=== PATIENT | male | born 2005 | race Caucasian/White ===

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

== ENCOUNTER 2023-01-23 09:28 | Emergency (ER) | payer OTHER, SELFPAY ==
[2023-01-23 09:36] VITALS: BP 140/66; PULSE 105; RESP 20; TEMP 36.5; O2SAT 99
--- NOTE | 2023-01-23 09:38 | ED.URI ---
HPI - URI/Sore Throat General Chief Complaint: Upper Respiratory Infection Stated Complaint: cold flu Source: patient and RN notes reviewed History of Present Illness HPI Narrative: 17 yo M presents to urgent care with complaints of sore throat, BLOOD, SOB with exertion, dizziness with movement, especially when he rotates in bed. Pt reports using his Albuterol inhaler does help with his SOB. Pt states he made himself vomit yesterday x 1 b/c he thought it would make his dizziness better. Pt denies any other vomiting or diarrhea. Pt reports feeling hot and cold at the same time yesterday. Denies any ear pain or tinnitus. Denies any chest pain or abdominal pain. Related Data Allergies Allergy/AdvReac Type Severity Reaction Status Date / Time No Known Allergies Allergy Verified 01/23/23 09:42 Review of Systems Review of Systems: CONSTITUTIONAL: Reports possible fever yesterday EYES: Denies visual changes, redness, or discharge. ENT: Sore throat CARDIOVASCULAR: Denies chest pain, palpitations, or edema. RESPIRATORY: Reports cough and dyspnea with exertion. GASTROINTESTINAL: Denies abdominal pain, nausea, vomiting, or diarrhea. GENITOURINARY: Denies dysuria or hematuria. SKIN: Denies rash or itching. MUSCULOSKELETAL: Denies back pain, joint pain, or myalgia. NEUROLOGIC: BLOOD PMFSH Comments At the time of my signature, I reviewed and agree with the nursing past medical, surgical, social, and family history. There is no relevant family history pertinent to the patient complaint. Exam Narrative: GENERAL: This is a well-nourished, well-developed patient, in no apparent distress. HEAD: normocephalic, atraumatic. EYES: PERRL. Sclera clear/white. Vision is grossly intact. EARS: External ears normal, auditory canals clear and without drainage, TMs normal without perforation. Hearing grossly intact. NOSE: External nose normal with no obvious nasal discharge, nares without redness, no rhinorrhea. THROAT: Mucous membranes moist, posterior pharynx erythremic. Tonsils 3+ bilaterally. No exudate. NECK: Neck supple, non-tender with mild lymphadenopathy. CARDIOVASCULAR: Regular rate. RESPIRATORY: Clear to auscultation. Breath sounds equal bilaterally. No wheezes, rales, or rhonchi. GASTROINTESTINAL: Abdomen soft, non-tender, nondistended. Bowel sounds are active. No hepato-splenomegaly, or palpable masses. No guarding. SKIN: warm, intact with no suspicious lesions or rash, good texture and turgor. NEURO: awake, alert, and oriented to person, place and time. There were no obvious focal neurologic abnormalities. Course Course Level of Care: Express Care Visit Vital Signs Vital signs: Vital Signs Temperature 97.7 F 01/23/23 09:36 Pulse Rate 105 H 01/23/23 09:36 Respiratory Rate 20 01/23/23 09:36 Blood Pressure 140/66 01/23/23 09:36 Pulse Oximetry 99 01/23/23 09:36 Oxygen Delivery Room Air 01/23/23 09:36 Temperature 97.7 F 01/23/23 09:36 Pulse Rate 105 H 01/23/23 09:36 Respiratory Rate 20 01/23/23 09:36 Blood Pressure 140/66 01/23/23 09:36 Pulse Oximetry 99 01/23/23 09:36 Oxygen Delivery Room Air 01/23/23 09:36 reviewed MDM - URI/Sore Throat MDM Narrative Medical decision making narrative: After 24 hours on antibiotics throw tooth brush away and start using a new one. Do not share drinks. Take Motrin alternating with Tylenol for pain and fever alternating every 4 hours. Increase fluids, avoid caffeine. Follow up with Primary provider if not getting better this week Differential Diagnosis Differential diagnosis: Likely upper respiratory infection, viral infection and pharyngitis Lab Data Attestation: I reviewed the patient's lab results. Labs: Influenza A Screen Negative Reference Range: Negative Influenza B Screen Negative Reference Range: Negative Strep Scr
== END 2023-01-23 10:20 | disposition home or self-care (01) ==
PROVIDERS: Emergency Provider Nurse Practitioner Family; PCP Emergency Medicine
DX: J02.0 Streptococcal pharyngitis (principal)
CPT/HCPCS: 87804; 87880; 99213; G0463

== ENCOUNTER 2023-02-04 17:49 | Emergency (ER) | payer OTHER, SELFPAY ==
[2023-02-04 17:56] VITALS: BP 129/74; PULSE 72; RESP 18; TEMP 36.6; O2SAT 99
--- NOTE | 2023-02-04 18:55 | ED.URI ---
HPI - URI/Sore Throat General Chief Complaint: Upper Respiratory Infection Stated Complaint: Congestion/Sore Throat Time Seen by Provider: 02/04/23 18:50 Source: patient, RN notes reviewed and old records reviewed Mode of arrival: ambulatory Limitations: no limitations History of Present Illness HPI Narrative: 17 year old male who presents to [facility] care with complaints of scratchy sore throat, cough with congestion for the past 2 days. Patient reports that he recently completed 7 days of Amoxicillin for strep throat which was diagnosed on the 23 of January. Patient reports that he has not taken any OTC medications for his symptoms. Patient denies any shortness of breath, body aches or any known fevers. MD elicited complaint: cough and sore throat Pertinent past history: other (recent strep) Onset (ago): day(s) (2) Treatments prior to arrival: none Related Data Allergies Allergy/AdvReac Type Severity Reaction Status Date / Time No Known Allergies Allergy Verified 02/04/23 18:22 Review of Systems Review of Systems: CONSTITUTIONAL: Denies malaise, chills, sweats, or fever. EYES: Denies visual changes, redness, or discharge. ENT: Reports rhinorrhea, congestion, no sinus pain,no otalgia scratchy sore throat. CARDIOVASCULAR: Denies chest pain, palpitations, or edema. RESPIRATORY: Reports cough.? Denies dyspnea. GASTROINTESTINAL: Denies abdominal pain, nausea, vomiting, diarrhea SKIN: Denies rash or itching. MUSCULOSKELETAL: Denies myalgia. NEUROLOGIC: Denies headache. All systems reviewed & are unremarkable except as noted in HPI and below PMFSH Past Medical History Medical History (Updated 02/06/23 @ 22:19 by Lluvia Watkins NP) ADHD (attention deficit hyperactivity disorder) Asthma Ear infection Surgical History Surgical History (Updated 02/06/23 @ 22:19 by Lluvia Watkins NP) History of adenoidectomy History of herniorrhaphy as infant History of placement of ear tubes as child Social History Social History (Updated 02/06/23 @ 22:18 by Lluvia Watkins NP) Smoking status: Current some day smoker Alcohol intake: unknown Living arrangements: with family Gender identity (if verbalized by the patient): Male Comments At time of signature, agree with nursing past medical, surgical, social and family history. There is no relevant family history pertinent to the presenting complaint Exam Narrative: GENERAL: Well-appearing, well-nourished, and in no acute distress. HEAD: Normocephalic EYES: PERRLA, conjunctivae clear ENT: Nares clear, turbinates edematous and erythematous, clear light yellow discharge. Mucous membranes moist. TM pearly tejada with dull light reflex bilaterally; no tragal tenderness. Oropharynx erythematous without lesions. Tonsils not enlarged and without exudate, no drooling, no hoarseness, no trismus, uvula midline.post nasal drainage NECK: Supple. No lymphadenopathy CHEST: Clear to auscultation, breath sounds equal. No wheezing, rhonchi, rales, or stridor. No respiratory distress, speaks in full sentences.cough noted SAO2 99% on room air HEART: Regular rate and rhythm. No murmur heard. SKIN: Warm, dry, no rash. NEURO: Alert and oriented x3. PSYCH: Normal mood and affect Course Course Emergency Course: Patient is aware of diagnosis, understands and agrees to treatment plan.? Anticipatory guidance given.? Patient agrees to follow-up as directed and is aware of reasons to seek care at the emergency department. Portions of this record may have been created with voice recognition software Level of Care: Express Care Visit Vital Signs Vital signs: Vital Signs Temperature 36.6 C 02/04/23 17:56 Pulse Rate 72 02/04/23 17:56 Respiratory Rate 18 02/04/23 17:56 Blood Pressure 129/74 02/04/23 17:56 Pulse Oximetry 99 02/04/23 17:56 Oxygen Delivery Room Air 02/04/23 17:56 Temperature 36.6 C 02/04/23 17:56 Pulse Rate 72
== END 2023-02-04 19:10 | disposition home or self-care (01) ==
PROVIDERS: Emergency Provider Registered Nurse
DX: J06.9 Acute upper respiratory infection, unspecified (principal); J45.909 Unspecified asthma, uncomplicated
CPT/HCPCS: 99213; G0463

== ENCOUNTER 2023-03-20 12:59 | Emergency (ER) | payer OTHER, SELFPAY ==
[2023-03-20 13:12] VITALS: BP 123/74; PULSE 66; RESP 20; TEMP 36.6; O2SAT 100
--- NOTE | 2023-03-20 14:17 | ED.GENADULT ---
HPI - General Adult General Chief complaint: Upper Respiratory Infection Stated complaint: sinus infection Time Seen by Provider: 03/20/23 14:17 Source: patient, RN notes reviewed and old records reviewed Mode of arrival: ambulatory Limitations: no limitations History of Present Illness HPI narrative: 17-year-old male who presents to [facility] with complaints of 1 week duration nasal congestion and drainage with yellow discharge. Patient has reported that he called off work today and needs work noted. Patient reports that he ye nasal drainage and also post nasal drainage, some left ear pain, and he threw up this morning and felt dizziness. Patient has not taken any OTC medications for his symptoms.Patient reports that he has been COVID vaccinated and he has had flu shot. MD complaint: nasal congestion and drainage cough, left ear pain Onset (ago): week(s) (1) Severity scale (1-10): 3 Treatments prior to arrival: none Related Data Allergies Allergy/AdvReac Type Severity Reaction Status Date / Time No Known Allergies Allergy Verified 03/20/23 13:28 Review of Systems Review of Systems: CONSTITUTIONAL: Denies malaise, chills, sweats, or fever. EYES: Denies visual changes, redness, or discharge. ENT: Reports rhinorrhea, congestion, sinus pain, left otalgia and no sore throat.dizziness this morning CARDIOVASCULAR: Denies chest pain, palpitations, or edema. RESPIRATORY: Reports no cough.? Denies dyspnea. GASTROINTESTINAL: Denies abdominal pain, nausea, vomiting, diarrhea, Emesis X1 this morning SKIN: Denies rash or itching. MUSCULOSKELETAL: Denies myalgia. NEUROLOGIC: Denies headache. All systems reviewed & are unremarkable except as noted in HPI and below PMFSH Past Medical History Medical History (Updated 03/22/23 @ 11:28 by Lluvia Watkins NP) ADHD (attention deficit hyperactivity disorder) Asthma Ear infection Surgical History Surgical History (Updated 02/06/23 @ 22:19 by Lluvia Watkins NP) History of adenoidectomy History of herniorrhaphy as History of placement of ear tubes as child Social History Social History (Updated 02/06/23 @ 22:18 by Lluvia Watkins NP) Smoking status: Current some day smoker Alcohol intake: unknown Living arrangements: with family Gender identity (if verbalized by the patient): Male Comments At time of signature, agree with nursing past medical, surgical, social and family history. There is no relevant family history pertinent to the presenting complaint Exam Narrative: GENERAL: Well-appearing, well-nourished, and in no acute distress. HEAD: Normocephalic EYES: PERRLA, conjunctivae clear ENT: Nares clear, turbinates edematous and erythematous, yellow discharge. Mucous membranes moist, Left TM red , Right TM pearly tejada with dull light reflex ; no tragal tenderness. Oropharynx erythematous without lesions. Tonsils enlarged and without exudate, no drooling, no hoarseness, no trismus, uvula midline.post nasal discharge. NECK: Supple. No lymphadenopathy CHEST: Clear to auscultation, breath sounds equal. No wheezing, rhonchi, rales, or stridor. No respiratory distress, speaks in full sentences.SAO2 100% on room air HEART: Regular rate and rhythm. No murmur heard. SKIN: Warm, dry, no rash. NEURO: Alert and oriented x3. PSYCH: Normal mood and affect Course Course Emergency Course: Patient is aware of diagnosis, understands and agrees to treatment plan.? Anticipatory guidance given.? Patient agrees to follow-up as directed and is aware of reasons to seek care at the emergency department. Portions of this record may have been created with voice recognition software Level of Care: Express Care Visit Vital Signs Vital signs: Vital Signs Temperature 36.6 C 03/20/23 13:12 Pulse Rate 66 03/20/23 13:12 Respiratory Rate 20 03/20/23 13:12 Blood Pressure 123/74 03/20/23 13:12 Pulse Oximetry 100
== END 2023-03-20 14:42 | disposition home or self-care (01) ==
PROVIDERS: Emergency Provider Registered Nurse
DX: J06.9 Acute upper respiratory infection, unspecified (principal); H65.02 Acute serous otitis media, left ear; F17.200 Nicotine dependence, unspecified, uncomplicated; J45.909 Unspecified asthma, uncomplicated
CPT/HCPCS: 99213; G0463